=== PATIENT | female | born 2000 | race Caucasian/White ===

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

== ENCOUNTER 2020-12-01 23:10 | Outpatient (CLI) | payer MEDICAID ==
[2020-12-02 00:39] LABS: BILIRUBIN NEGATIVE (NEGATIVE); KETONE SMALL mg/dL (NEGATIVE); NITRITE NEGATIVE (NEGATIVE); UROBILINOGEN NORMAL mg/dL (< 2)
== END 2020-12-02 02:34 | disposition home or self-care (01) ==
LOC: D.LDO 23:10 → D.LD 23:11 → D.LDO 12-02 02:34
PROVIDERS: ATTEND Obstetrics & Gynecology
DX: O26.892 Other specified pregnancy related conditions, second trimester (principal); Z3A.26 26 weeks gestation of pregnancy; R05 Cough; R09.81 Nasal congestion

== ENCOUNTER 2021-01-09 19:12 | Outpatient (CLI) | payer MEDICAID ==
[~2021-01-09] VITALS: Ht 165.1 cm; Wt 86.4 kg
[2021-01-09 21:35] VITALS: BP 131/61; Ht 165.1 cm; Wt 86.4 kg
== END 2021-01-10 09:30 | disposition home or self-care (01) ==
LOC: D.LDO 19:12 → D.LD 19:49 → D.LDO 01-10 09:30
PROVIDERS: ATTEND Obstetrics & Gynecology
DX: O26.899 Other specified pregnancy related conditions, unspecified trimester (principal)